=== PATIENT | female | born 1990 | race Caucasian/White ===

== ENCOUNTER 2016-12-28 10:56 | Emergency (ER) | payer OTHER ==
[2016-12-28] MEDS ORDERED: IPRATROPIUM/ALBUTEROL 3 ML DEYVIAL IH ONE (11:26)
[2016-12-28] MEDS ORDERED: IPRATROPIUM/ALBUTEROL 3 ML DEYVIAL ONE (11:27)
--- NOTE | 2016-12-28 11:29 | UCPHY ---
H & P Patient Type: Established Chief Complaint Nursing Narrative: NAUSEA, BODY ACHES, CHILLS, SOB SINCE 4AM Time Seen by Provider: 12/28/16 11:13 HPI/ROS: CHIEF COMPLAINT: Flu-like symptoms since 4:00 a.m. HISTORY OF PRESENT ILLNESS: 26-year-old immunocompetent female nonsmoker, with no up-to-date influenza vaccination, works as a aerobics teacher, complaining of flu-like symptoms, coughing, dyspnea, fever, myalgias since 4:00 a.m. today. She also had nausea and vomiting. No abdominal pain. No back or flank pain. No urinary complaints. No nuchal rigidity. No international travel. REVIEW OF SYSTEMS: A ten point review of systems was performed and is negative with the exception of the items mentioned in the HPI PAST MEDICAL & SURGICAL HISTORY: No pertinent medical or surgical history SOCIAL HISTORY: Nonsmoker. Works as a aerobics teacher PHYSICAL EXAM (Prior to examination, patient consented to physical exam, hands were washed and my usual and customary physical exam procedures followed) 1) GENERAL: Well-developed, well-nourished, alert and oriented. AppearsNontoxic 2) HEAD: Normocephalic, atraumatic 3) HEENT: Pupils equal, round, reactive to light bilaterally. Sclera anicteric. Nasopharynx, oropharynx, clear, no lesions. no tonsil enlargement no tonsillar exudate Ears bilaterally with normal tympanic membranes. 4) NECK: Full range of motion, no meningeal signs. 5) LUNGS: mild wheezing bilaterally, no rhonchi, no retractions. no accessary muscle use 6) HEART: Regular rate and rhythm, no murmur, no heave, no gallop. 7) ABDOMEN: No guarding, no rebound, no focal tenderness, negative McBurney's, negative Schmidt's, negative Rovsing's, negative peritoneal sign, 8) MUSCULOSKELETAL: Moving all extremities, no focal areas of tenderness, no obvious trauma. No peripheral edema or discoloration. 9) BACK: No CVA tenderness, no midline vertebral tenderness, no fluctuance, no step-off, no obvious trauma, no visual or palpable abnormality. 10) SKIN: No rash, no petechiae. 11) Psychiatric: Patient is oriented X 3, there is no agitation. DIFFERENTIAL DIAGNOSIS: [ in no particular include but limited to pneumonia, influenza, bronchitis - Personal History LMP (Females 10-55): Over 28 Days Ago Current Tetanus Diphtheria and Acellular Pertussis (TDAP): Unsure - Medical/Surgical History Hx Asthma: No Hx Chronic Respiratory Disease: No Hx Diabetes: No Hx Cardiac Disease: No Hx Renal Disease: No Hx Cirrhosis: No Hx Alcoholism: No Hx HIV/AIDS: No Hx Splenectomy or Spleen Trauma: No Other PMH: MISCARRIAGE 2 WEEKS AGO - Family History Significant Family History: No pertinent family hx - Social History Smoking Status: Never smoked Constitutional: Initial Vital Signs Temperature (C) 37.4 C 12/28/16 11:02 Heart Rate 100 12/28/16 11:02 Respiratory Rate 16 12/28/16 11:02 Blood Pressure 126/80 H 12/28/16 11:02 O2 Sat (%) 95 12/28/16 11:02 O2 Delivery Mode Room Air Allergies/Adverse Reactions: acetaminophen [From Percocet] Allergy (Verified 12/28/16 11:06) morphine Allergy (Verified 12/28/16 11:06) oxycodone HCl [From Percocet] Allergy (Verified 12/28/16 11:06) Penicillins Allergy (Verified 12/28/16 11:06) Home Medications: Medication Instructions Recorded AZITHROMYCIN [Z-PACK] 500 mg PO DAILY #1 packet 12/28/16 Albuterol [Proventil Inhaler HFA 1 - 2 puffs IH Q4PRN PRN #1 mdi 12/28/16 (*)] predniSONE [Prednisone] 60 mg PO DAILY #9 tablet 12/28/16 Medical Decision Making - Diagnostics Imaging: Chest, PA and lateral. History: Body aches and chills and fever. Findings: Heart size is within normal limits. Peribronchial wall thickening bilaterally. Question early infiltrate in the right lower lobe. No evidence for pleural effusion. No significant osseous abnormality. Impression: Bronchitis and possible early right lower lobe pneumonia. Dictated By: Kevyn Verduzco MD Images reviewed by myself ED Course/Re-evaluation: Re-evaluation with serial exams. Most recent exam at 1 p.m. she is breathing comfortably. She feels improvement after DuoNeb treatment. Discussed her imaging studies showing possible early lower lobe pneumonia. She is maintain normal saturations and has no history of immunocompromised condition. I think the patient can be discharged and treated on outpatient basis with close follow- up. Started on antibiotics. Contact precautions provided. Strict return precautions provided. She is discharged with azithromycin, albuterol and prednisone. - Data Points Laboratory Results: 12/28/16 12/28/16 13:11 11:23 Urine Color YELLOW Urine Appearance CLEAR Urine pH 6.5 (5.0-7.5) Ur Specific [place] 1.010 (1.002-1.030) Urine Protein NEGATIVE (NEGATIVE) Urine Ketones NEGATIVE (NEGATIVE) Urine Blood NEGATIVE (NEGATIVE) Urine Nitrate NEGATIVE (NEGATIVE) Urine Bilirubin NEGATIVE (NEGATIVE) Urine Urobilinogen 0.2 EU (0.2-1.0) Ur Leukocyte Esterase NEGATIVE (NEGATIVE) Urine Glucose NEGATIVE (NEGATIVE) Influenza Typ A,B (DFA) NEGATIVE FOR FLU (NEGATIVE) Medications Given: Discontinued Medications Albuterol/Ipratropium (Duoneb) 3 ml IH EDNOW ONE Stop: 12/28/16 11:27 Last Admin: 12/28/16 11:29 Dose: 3 ml Ondansetron HCl (Zofran Odt) 4 mg PO EDNOW ONE Stop: 12/28/16 12:11 Last Admin: 12/28/16 12:11 Dose: 4 mg Prednisone (Prednisone) 60 mg PO EDNOW ONE Stop: 12/28/16 12:29 Last Admin: 12/28/16 13:18 Dose: 60 mg Departure - Departure Disposition: Home, Routine, Self-Care Clinical Impression: Pneumonia Condition: Good Instructions: Bacterial Pneumonia (ED) Additional Instructions: go to the closest emergency department if you developed new or worsening symptoms, shortness of breath or any other symptoms that concern you Referrals: NONE *PRIMARY CARE P,. [Primary Care Provider] - As per Instructions Prescriptions: Albuterol [Proventil Inhaler HFA (*)] 1 - 2 puffs IH Q4PRN PRN #1 mdi PRN Reason: Cough, Moderate AZITHROMYCIN [Z-PACK] 500 mg PO DAILY #1 packet predniSONE [Prednisone] 60 mg PO DAILY #9 tablet - PQRS PQRS Measurement: Not applicable
[2016-12-28] MEDS ORDERED: ONDANSETRON DISINTEGRATING 4 MG TAB ONE (12:06)
[2016-12-28] MEDS ORDERED: ONDANSETRON DISINTEGRATING 4 MG TAB PO ONE (12:10)
--- NOTE | 2016-12-28 12:20 | DX ---
Chest, PA and lateral. History: Body aches and chills and fever. Findings: Heart size is within normal limits. Peribronchial wall thickening bilaterally. Question ear ly infiltrate in the right lower lobe. No evidence for pleural effusion. No significant osseous abnor mality. Impression: Bronchitis and possible early right lower lobe pneumonia.
[2016-12-28] MEDS ORDERED: predniSONE 20 MG TAB PO ONE (12:28)
[2016-12-28 13:23] LABS: COLOR YELLOW; LEUKOCYTE ESTERASE,URINE NEGATIVE (NEGATIVE); NITRITE,URINE NEGATIVE (NEGATIVE); PH,URINE 6.5 (5.0-7.5)
[2016-12-28 13:42] VITALS: BP 119/82; PULSE 90; RESP 17; TEMP 98.8; O2SAT 96
== END 2016-12-28 13:43 | disposition home or self-care (01) ==
LOC: CED 10:56
DX: J15.9 Unspecified bacterial pneumonia (principal); R11.2 Nausea with vomiting, unspecified
CPT/HCPCS: 71020-PO; 81003-PO; 87400-PO; G0463-PO

== ENCOUNTER → 2017-05-04 | Outpatient (CLI) | payer OTHER | LOC: FIMAGING 09:00 | PROVIDERS: ATTEND Obstetrics & Gynecology | DX: O30.1 Triplet pregnancy (principal); Z3A.11 11 weeks gestation of pregnancy ==

== ENCOUNTER → 2017-06-01 | Outpatient (CLI) | payer OTHER | LOC: FIMAGING 12:37 | PROVIDERS: ATTEND Obstetrics & Gynecology | DX: O30.112 Triplet pregnancy with two or more monochorionic fetuses, second trimester (principal); Z3A.15 15 weeks gestation of pregnancy ==

== ENCOUNTER 2017-06-04 12:24 | Emergency (ER) | payer OTHER ==
[2017-06-04 12:30] VITALS: RESP 16
--- NOTE | 2017-06-04 12:49 | CPEKG ---
Heart Rate: 93 RR Interval: 645 P-R Interval: 140 QRSD Interval: 82 QT Interval: 352 QTC Interval: 438 P Catlett: 55 QRS Catlett: 77 T Wave Catlett: 30 EKG Severity - NORMAL ECG - EKG Impression: SINUS RHYTHM Electronically Signed By: Rodolfo Rowell 05-Jun-2017 13:59:41
[2017-06-04 13:02] LABS: % IMMATURE GRANULYOCYTES 1.4 % (0.0-1.1); ABSOLUTE IMMATURE GRANULOCYTES 0.14 10^3/uL (0.00-0.10); ADD DIFF? NO; ADD MORPH? NO; ADD SCAN? NO; ATYPICAL LYMPHOCYTE FLAG 10 (0-99); FRAGMENT RBC FLAG 0 (0-99); HEMATOCRIT 30.2 % (38.0-47.0); HEMOGLOBIN 10.9 g/dL (12.6-16.3); LEFT SHIFT FLG 10 (0-99); LIPEMIA HEMOLYSIS FLAG 90 (0-99); MEAN CELL HEMOGLOBIN 31.8 pg (27.9-34.1); MEAN CELL HEMOGLOBIN CONCENTR. 36.1 g/dL (32.4-36.7); MEAN PLATELET VOLUME 10.3 fL (8.7-11.7); PLATELET CLUMPS FLAG 10 (0-99); PLATELET COUNT 166 10^3/uL (150-400); RED BLOOD CELL COUNT 3.43 10^6/uL (4.18-5.33); RED CELL DISTRIBUTION WIDTH 13.4 % (11.5-15.2)
[2017-06-04 13:15] LABS: ANION GAP 10 mEq/L (8-16); CALCIUM 9.6 mg/dL (8.5-10.4); CARBON DIOXIDE 21 mEq/l (22-31); CHLORIDE 107 mEq/L (97-110); CREATININE 0.8 mg/dL (0.6-1.0); GLOMERULAR FILTRATION RATE > 60; GLUCOSE 75 mg/dL (70-100); SODIUM 138 mEq/L (134-144)
--- NOTE | 2017-06-04 13:31 | EDPHY ---
H & P Stated Complaint: chest discomfort & +SOB Time Seen by Provider: 06/04/17 12:41 HPI/ROS: CHIEF COMPLAINT: chest pressure, shortness of breath HISTORY OF PRESENT ILLNESS: 27-year-old female who is 16 weeks with triplets presents to the emergency department complaining of an intermittent chest pressure with difficulty taking a deep breath lasting approximately an hour. Patient states this is been happening intermittently for the last week. She reports the episodes last 1 hour, they have happened 4 times in the last week. Patient reports no symptoms today. Patient states when the symptoms begin she will lay down, take a nap and try to relax, she will wake up and her symptoms are gone. Patient denies history of blood clots. She takes a baby aspirin daily. Patient reports intermittent bilateral calf pain the last couple months upon waking up in the mornings, no calf swelling or tenderness to palpation. Patient reports mild nasal congestion, no sore throat, no cough. She has a history of exercise-induced asthma. No fevers or chills, no abdominal pain, no decrease in movement, no vaginal bleeding. REVIEW OF SYSTEMS: A comprehensive 10 point review of systems is otherwise negative aside from elements mentioned in the history of present illness. Source: Patient Exam Limitations: No limitations - Personal History LMP (Females 10-55): Current Tetanus/Diphtheria Vaccine: Yes Current Tetanus Diphtheria and Acellular Pertussis (TDAP): Yes - Medical/Surgical History Hx Asthma: No Hx Chronic Respiratory Disease: No Hx Diabetes: No Hx Cardiac Disease: No Hx Renal Disease: No Hx Cirrhosis: No Hx Alcoholism: No Hx HIV/AIDS: No Hx Splenectomy or Spleen Trauma: No - Family History Significant Family History: No pertinent family hx - Social History Smoking Status: Never smoked Alcohol Use: None Drug Use: None - Physical Exam Exam: Physical Exam Gen: Alert and Oriented, NAD HEENT: PERRL, moist mucous membranes NECK: no meningismus CV: regular rate and regular rhythm PULM: CTAB, no wheezes ABDOMEN: Gravid uterus, soft, nontender BACK: No CVA tenderness NEURO: Neurologically grossly intact EXTREMITIES: normal appearing, no calf tenderness to palpation, no calf swelling SKIN: no rash or break in skin on exposed skin PSYCH: answers questions appropriately. Constitutional: Initial Vital Signs Temperature (C) 36.9 C 06/04/17 12:27 Heart Rate 94 06/04/17 12:27 Respiratory Rate 16 06/04/17 12:27 Blood Pressure 116/61 06/04/17 12:27 O2 Sat (%) 96 06/04/17 12:27 O2 Delivery Mode Room Air Allergies/Adverse Reactions: acetaminophen [From Percocet] Allergy (Verified 12/28/16 11:06) morphine Allergy (Verified 12/28/16 11:06) oxycodone HCl [From Percocet] Allergy (Verified 12/28/16 11:06) Penicillins Allergy (Verified 12/28/16 11:06) Home Medications: Medication Instructions Recorded AZITHROMYCIN [Z-PACK] 500 mg PO DAILY #1 packet 12/28/16 Albuterol [Proventil Inhaler HFA 1 - 2 puffs IH Q4PRN PRN #1 mdi 12/28/16 (*)] predniSONE [Prednisone] 60 mg PO DAILY #9 tablet 12/28/16 Medical Decision Making - Diagnostics EKG Interpretation: EKG shows normal sinus rhythm, rate 93, normal axis, good R-wave progression, no ST or T-wave abnormalities. Imaging Results: Imaging Impressions Extremity Venous Study 06/04/17 13:55 Impression: No deep venous thrombosis bilateral legs. Findings and recommendations discussed with Emergency Department physician, Oriana Pinzon NP at 14:48 hour, 06/04/2017. Final report concurs with initial preliminary interpretation. Imaging: Discussed imaging studies w/ physically impaired teacher Radiologist ED Course/Re-evaluation: IV established, cbc, chemistry panel, troponin, ddimer, ekg obtained. cbc, chemistry panel are unremarkable, troponin is negative. EKG normal. D- dimer elevated at .70. Ultrasounds ordered of bilateral lower extremities to rule out DVT. Ultrasounds are normal. I have discussed getting chest xray and likely a CT of the patients chest to rule out a pulmonary embolism. Pt is not comfortable with doing either one of these studies due to the radiation and being with triplets. I had a long discussion with the patient about the risk of a pulmonary embolism and she continues to refuse. Patient will be discharged home , I have recommended close follow up with her OBGYN and return to the emergency department for any worsening symptoms, new symptoms or concerns. - Data Points Laboratory Results: Laboratory Results 06/04/17 12:50 06/04/17 12:50 06/04/17 06/04/17 06/04/17 12:50 12:50 12:50 WBC 10.08 10^3/uL H 10^3/uL (3.80-9.50) RBC 3.43 10^6/uL L 10^6/uL (4.18-5.33) Hgb 10.9 g/dL L g/dL (12.6-16.3) Hct 30.2 % L % (38.0-47.0) MCV 88.0 fL fL (81.5-99.8) MCH 31.8 pg pg (27.9-34.1) MCHC 36.1 g/dL g/dL (32.4-36.7) RDW 13.4 % % (11.5-15.2) Plt Count 166 10^3/uL 10^3/uL (150-400) MPV 10.3 fL fL (8.7-11.7) Neut % (Auto) 77.0 % H % (39.3-74.2) Lymph % (Auto) 14.7 % L % (15.0-45.0) Williamson % (Auto) 5.4 % % (4.5-13.0) Eos % (Auto) 1.3 % % (0.6-7.6) Baso % (Auto) 0.2 % L % (0.3-1.7) Nucleat RBC Rel Count 0.0 % % (0.0-0.2) Absolute Neuts (auto) 7.77 10^3/uL H 10^3/uL (1.70-6.50) Absolute Lymphs (auto) 1.48 10^3/uL 10^3/uL (1.00-3.00) Absolute Monos (auto) 0.54 10^3/uL 10^3/uL (0.30-0.80) Absolute Eos (auto) 0.13 10^3/uL 10^3/uL (0.03-0.40) Absolute Basos (auto) 0.02 10^3/uL 10^3/uL (0.02-0.10) Absolute Nucleated RBC 0.00 10^3/uL 10^3/uL (0-0.01) Immature Gran % 1.4 % H % (0.0-1.1) Immature Gran # 0.14 10^3/uL H 10^3/uL (0.00-0.10) D-Dimer 0.70 ug/mLFEU H ug/mLFEU (0.00-0.50) Sodium 138 mEq/L mEq/L (134-144) Potassium 4.0 mEq/L mEq/L (3.5-5.2) Chloride 107 mEq/L mEq/L (97-110) Carbon Dioxide 21 mEq/l L mEq/l (22-31) Anion Gap 10 mEq/L mEq/L (8-16) BUN 9 mg/dL mg/dL (7-23) Creatinine 0.8 mg/dL mg/dL (0.6-1.0) Estimated GFR > 60 Glucose 75 mg/dL mg/dL (70-100) Calcium 9.6 mg/dL mg/dL (8.5-10.4) Troponin I 06/04/17 12:45 WBC RBC Hgb Hct MCV MCH MCHC RDW Plt Count MPV Neut % (Auto) Lymph % (Auto) Williamson % (Auto) Eos % (Auto) Baso % (Auto) Nucleat RBC Rel Count Absolute Neuts (auto) Absolute Lymphs (auto) Absolute Monos (auto) Absolute Eos (auto) Absolute Basos (auto) Absolute Nucleated RBC Immature Gran % Immature Gran # D-Dimer Sodium Potassium Chloride Carbon Dioxide Anion Gap BUN Creatinine Estimated GFR Glucose Calcium Troponin I < 0.012 ng/mL ng/mL (0-0.034) Departure - Departure Disposition: Home, Routine, Self-Care Clinical Impression: Left chest pressure, Shortness of breath Condition: Good Instructions: Chest Pain (ED), Dyspnea (ED) Additional Instructions: Follow up with Dr. Herndon at first available appointment. Return to the emergency department for any new symptoms, worsening symptoms or concerns. Referrals: Yissel Herndon MD [Medical Doctor] - As per Instructions
[2017-06-04 15:26] VITALS: BP 118/75; PULSE 91; TEMP 97.9; O2SAT 98
== END 2017-06-04 15:00 | disposition home or self-care (01) ==
DX: O99.89 Other specified diseases and conditions complicating pregnancy, childbirth and the puerperium (principal); R07.89 Other chest pain; R06.02 Shortness of breath; Z3A.16 16 weeks gestation of pregnancy

== ENCOUNTER → 2017-06-15 | Outpatient (CLI) | payer OTHER | LOC: FIMAGING 10:05 | PROVIDERS: ATTEND Obstetrics & Gynecology | DX: O30.112 Triplet pregnancy with two or more monochorionic fetuses, second trimester (principal); Z3A.17 17 weeks gestation of pregnancy ==

== ENCOUNTER → 2017-06-25 | Outpatient (CLI) | payer OTHER | LOC: FIMAGING 10:11 | PROVIDERS: ATTEND Obstetrics & Gynecology ==

== ENCOUNTER 2017-06-27 21:05 | Observation (INO) | payer OTHER ==
--- NOTE | 2017-06-27 22:30 | SOAPPROG ---
SOAP Progress Note Assessment/Plan: Assessment/Plan: 27 yo here at 19 weeks with triplet (mo-di + minor) Worsening discomfort when standing--advise trial of belly band No e/o PTL: cervix long/closed on US and exam No previa Reassuring status x 3 No e/o UTI No e/o vaginitis Stable for discharge home. Routine precautions given. Continue modified bedrest. she is starting to have to strain for BM--advise to start colace and she agrees with plan 06/27/17 22:27 Subjective: 27 yo with triplet at 19 weeks here for spotting and cramping. Light spotting throughout the day. Worsening cramping in lower abdomen tonight. Babies active. No LOF. Just had normal anatomy US for all babies. Objective: VS WNL Gen: NAD Resp: unlabored CV: RRR Abd: gravid, soft, nontender Ext: no edema Bedside TUAS: + FHT x 3 TVUS: CL 4.5-5 cm, no funnel, long/closed SSE: cervix long/closed, no blood in vault, physiologic discharge SVE: 0/0/high Urine dip: neg for all components ICD10 Worksheet Patient Problems: Problems Problem Status Onset Triplet Acute - ICD10 Problem Qualifiers (1) Triplet Qualifiers: Multiple gestation type: M Trimester: T
== END 2017-06-27 22:36 | disposition home or self-care (01) ==
LOC: FLD 21:05
PROVIDERS: ADMIT Obstetrics & Gynecology; ATTEND Obstetrics & Gynecology
DX: R10.84 Generalized abdominal pain (principal); O30.122 Triplet pregnancy with two or more monoamniotic fetuses, second trimester; Z3A.19 19 weeks gestation of pregnancy

== ENCOUNTER → 2017-07-09 | Outpatient (CLI) | payer OTHER | LOC: FIMAGING 08:24 | PROVIDERS: ATTEND Obstetrics & Gynecology | DX: O30.112 Triplet pregnancy with two or more monochorionic fetuses, second trimester (principal); Z3A.20 20 weeks gestation of pregnancy ==